=== PATIENT | male | born 1955 | race Asian ===

== ENCOUNTER 2017-06-19 05:39 | Emergency (ER) | payer SELFPAY ==
[~2017-06-19] VITALS: Ht 172.7 cm; Wt 68.0 kg
[2017-06-19] MEDS ORDERED: SODIUM CHLORIDE 0.9% 1,000 ML IV ONE (05:57)
[2017-06-19] MEDS ORDERED: NITROGLYCERIN 50MG PREMIX 250 ML IV ONE (05:57)
[2017-06-19] MEDS ORDERED: ASPIRIN 81MG TABLET PO ONE (06:00)
[2017-06-19] MEDS ORDERED: FUROSEMIDE 40MG/4ML VIAL IV ONE (06:00)
[2017-06-19 06:44] LABS: HEMATOCRIT. 51.5 % (42.0-52.0); HEMOGLOBIN. 16.7 g/dL (14.0-18.0); LYMPHOCYTES % 44.2 % (20.0-50.0); MEAN CORPUSCULAR HEMOGLOBIN 27.5 pg (28.0-32.0); MEAN CORPUSCULAR VOLUME 84.8 fL (80.0-94.0); MEAN PLATELET VOLUME 10.1 fl (7.4-10.4); NEUTROPHILS % 46.8 % (40.0-76.0); PLATELET 254 x1000/uL (130-400); RED BLOOD CELL COUNT 6.07 mill/uL (4.7-6.1); RED CELL DISTRIBUTION WIDTH 14.5 % (11.6-14.6)
[2017-06-19 06:45] LABS: PARTIAL THROMBOPLASTIN TIME 25.2 sec (23.4-31.0); PROTHROMBIN TIME 10.3 sec (9.4-11.6)
[2017-06-19 06:53] VITALS: BP 135/98
[2017-06-19 06:55] LABS: BG BILEVEL POS AIRWAY PRESSURE 20/5; BG CARBOXYHEMOGLOBIN 1.6 % (0.5-1.5); BG DEOXYHEMOGLOBIN 2.3 % (0.0-5.0); BG FRACTION INSPIRED OXYGEN 60; BG HCO3 ACT 14.4 mmol/L (22.0-26.0); BG METHEMOGLOBIN 0.4 % (0.0-1.5); BG OXYGEN SATURATION 97.7 % (92.0-98.5); BG OXYHEMOGLOBIN 95.7 % (94.0-97.0); BG PH 7.232 (7.350-7.450); BG PO2 112.5 mmHg (75.0-100.0); BG SAMPLE SITE LEFT RADIAL; BG TOTAL HEMOGLOBIN 17.7 g/dL (12.0-18.0); BG VENT MODE MASK - BIPAP; BG VENT RATE 16 set
[2017-06-19 07:00] LABS: CARBON DIOXIDE 16 mEq/L (21-32); CHLORIDE 101 mEq/L (98-107); ETHANOL BLOOD < 10 mg/dL
[2017-06-19] MEDS ORDERED: INSULIN REGULAR (HUMULIN R) UD 100 UNITS/ML SYR IV ONE (07:15)
== END 2017-06-19 07:25 | disposition short-term general hospital (02) ==
LOC: ER 05:56 → CANBEDREQ 08:36
DX: I21.3 ST elevation (STEMI) myocardial infarction of unspecified site (principal); I11.9 Hypertensive heart disease without heart failure; I25.2 Old myocardial infarction; Z86.73 Personal history of transient ischemic attack (TIA), and cerebral infarction without residual deficits
CPT/HCPCS: 36415; 36600; 71010; 80053; 82010; 82375; 82805; 83690; 83880; 84484; 85025; 85610; 85730; 87040; 93005; 96365; 96375; 99285; G0482; J1815; J1940; J3490; J7030; Z7610